=== PATIENT | male | born 1955 | race Caucasian/White ===

== ENCOUNTER 2016-12-29 01:44 | Inpatient (IN) | payer OTHER ==
[~2016-12-29] VITALS: Ht 193 cm; Wt 96.2 kg
--- NOTE | 2016-12-29 01:55 | NUR ---
TO BED 1 AMBULATORY C/O R FLANK PAIN WITH N/V X4 DAYS. PT AAOX4 NO ACUTE DISTRESS NOTED, RESP EVEN AND UNLABORED. ER MD AT BEDSIDE TO EVAL PT WITH ORDERS RECEIVED. WILL CARRY OUT ORDERS. URINE SAMPLE COLLECTED AND SENT TO LAB.
[2016-12-29] MEDS ORDERED: MORPHINE SULFATE INJ 2 MG/ML DISP.SYRIN IV ONE (02:00)
[2016-12-29] MEDS ORDERED: ONDANSETRON HCL/PF 4 MG/2 ML VIAL IVP ONE (02:00)
[2016-12-29] MEDS ORDERED: IV NS 0.9% 1,000 ML BAG IV ONE (02:00)
[2016-12-29] MEDS ORDERED: IV NS 0.9% 1,000 ML ONE ×2 (02:03→06:01)
[2016-12-29] MEDS ORDERED: MORPHINE SULFATE INJ 4 MG/ML DISP.SYRIN ONE (02:03)
[2016-12-29] MEDS ORDERED: ONDANSETRON HCL/PF 4 MG/2 ML VIAL ONE ×2 (02:03→03:27)
[2016-12-29] MEDS ORDERED: IV SET PRIMARY 1 EA INFUS.SET MC ONE (02:04)
--- NOTE | 2016-12-29 02:15 | NUR ---
PT MEDICATED BY RN PER ER MD ORDER.
--- NOTE | 2016-12-29 02:31 | NUR ---
PT BACK FROM RADIOLOGY. PENDING CT ABD/PELVIS RESULT.
[2016-12-29 02:32] LABS: HEMATOCRIT 44 % (39-51); HEMOGLOBIN 15.1 g/dL (13.5-17.5); LYMPHOCYTES # (AUTO) 0.8 /CMM (0.8-4.8); LYMPHOCYTES % (AUTO) 7.5 % (20.0-44.0); MEAN CORPUSCULAR HEMOGLOBIN 33 PG (26.0-33.0); MEAN CORPUSCULAR HGB CONC 35 g/dl (31.0-36.0); MEAN CORPUSCULAR VOLUME 96 fL (80-96); MONOCYTES # (AUTO) 1.1 /CMM (0.1-1.30); MONOCYTES % (AUTO) 9.8 % (2.0-12.0); NEUTROPHILS # (AUTO) 9.1 /CMM (1.8-8.9); NEUTROPHILS % (AUTO) 82.7 % (43.0-81.0); PLATELET COUNT (AUTO) 204 /CMM (150-450); RDW COEFFICIENT OF VARIATION 12.5 (11.5-15.0); RED BLOOD CELL COUNT(AUTO) 4.57 MIL/uL (4.5-6.0)
[2016-12-29 02:35] LABS: APPEARANCE,URINE CLEAR (CLEAR); BILIRUBIN,URINE 1+ (NEGATIVE); BLOOD, URINE 3+ Ery/uL (NEGATIVE); COLOR,URINE YELLOW (YELLOW); KETONES,URINE 2+ (NEGATIVE); LEUKOCYTE ESTERASE ,URINE NEGATIVE (NEGATIVE); NITRITE, URINE NEGATIVE (NEGATIVE); PROTEIN,URINE 1+ mg/dl (NEGATIVE); UGLUCOSE NEGATIVE (NEGATIVE)
[2016-12-29 02:46] LABS: BACTERIA,URINE None seen /HPF (None Seen); SQUAMOUS EPITHELIAL CELL,UR Rare /HPF (None Seen)
[2016-12-29 03:49] LABS: ALBUMIN 3.7 g/dL (3.4-5.0); BILIRUBIN,DIRECT 0.2 mg/dL (0.0-0.2); BILIRUBIN,TOTAL 1.3 mg/dL (0.2-1.0); CALCIUM, SERUM 9.1 mg/dL (8.5-10.1); CREATININE 1.3 mg/dL (0.6-1.3); POTASSIUM 3.5 mmol/L (3.5-5.1); TOTAL PROTEIN, SERUM 7.1 g/dL (6.4-8.2)
[2016-12-29] MEDS ORDERED: METOCLOPRAMIDE HCL 10 MG/2 ML VIAL ONE (03:51)
[2016-12-29] MEDS ORDERED: METOCLOPRAMIDE HCL 10 MG/2 ML VIAL IV ONE (04:00)
[2016-12-29] MEDS ORDERED: ONDANSETRON HCL/PF 4 MG/2 ML VIAL IV ONE (04:00)
--- NOTE | 2016-12-29 04:04 | NUR ---
CALLED DR. DILLON [facility] ; TRANSFERED CALL TO DR. BALBUENA.
--- NOTE | 2016-12-29 04:48 | NUR ---
PT ASSIGNED TO 311-2
--- NOTE | 2016-12-29 04:55 | NUR ---
REPORT GIVEN TO DIEGO MCKINNEY FOR [facility].
[2016-12-29 05:00] VITALS: BP 129/75
--- NOTE | 2016-12-29 05:05 | NUR ---
MS/RN NOTES RECEIVED PT. FROM ER VIA WHEELCHAIR. PT. IS AWAKE, ALERT AND ORIENTED X3. BREATHING EVEN AND UNLABORED ON ROOM AIR. NO SOB, RESPIRATORY DISTRESS OR COMPLAINTS OF PAIN NOTED AT THIS TIME. ORIENTED PT. TO ROOM. PT. WITH LEFT FOREARM 18 GAUGE IV SALINE LOCK PRESENT, PATENT AND INTACT. BED IN LOWEST POSITION, CALL LIGHT WITHIN REACH, WAITING FOR ADMITTING ORDERS, WILL CONTINUE TO MONITOR.
--- NOTE | 2016-12-29 05:07 | NUR ---
PT TRANSFER TO [facility] VIA W/C
[2016-12-29] MEDS ORDERED: IV NS 0.9% 1,000 ML IV PRN (05:50)
[2016-12-29] MEDS ORDERED: TAMSULOSIN 0.4 MG CAP.SR.24H PO SCH (06:00)
[2016-12-29] MEDS ORDERED: ONDANSETRON HCL/PF 4 MG/2 ML VIAL IVP PRN (06:00)
[2016-12-29] MEDS ORDERED: MAGNESIUM HYDROXIDE 30 ML UDC PO PRN (06:00)
[2016-12-29] MEDS ORDERED: LEVOFLOXACIN (500MG) 500 MG TABLET PO SCH (06:00)
[2016-12-29] MEDS ORDERED: Z GUARD REMEDY 2 OZ OINT TP PRN (06:00)
[2016-12-29] MEDS ORDERED: ZOLPIDEM TARTRATE 5 MG TABLET PO PRN (06:00)
[2016-12-29] MEDS ORDERED: KETOROLAC TROMETHAMINE INJ 30 MG/ML VIAL IV PRN (06:00)
[2016-12-29] MEDS ORDERED: ACETAMINOPHEN 325 MG TABLET PO PRN (06:00)
[2016-12-29] MEDS ORDERED: IV SET PRIMARY PUMP SET 1 EA INFUS.SET MC ONE (06:01)
--- NOTE | 2016-12-29 06:26 | NUR ---
MS/RN NOTES NOTIFIED DR. BAKER PT. REFUSING PO MEDS DUE TO NAUSEA AND VOMITING. PER DR. BAKER NEW ORDER: CHANGE LEVAQUIN 500MG TO IV. ALSO NOTIFIED DR. BAKER PT. REQUESTING REGLAN FOR NAUSEA STATING ZOFRAN MAKES HIS NAUSEA WORSE. PER DR. BAKER NEW ORDER: REGLAN 10 MG IV Q6 HR PRN NAUSEA/VOMITING. WILL CARRY OUT ORDERS WILL CONTINUE TO MONITOR.
[2016-12-29] MEDS ORDERED: METOCLOPRAMIDE HCL 10 MG/2 ML VIAL IV PRN (06:30)
--- NOTE | 2016-12-29 07:00 | NUR ---
MS/RN NOTES PT. LYING IN BED RESTING. BREATHING EVEN AND UNLABORED ON ROOM AIR. NO SOB, RESPIRATORY DISTRESS OR COMPLAINTS OF PAIN NOTED AT THIS TIME. PT. WITH LEFT FOREARM 18 GAUGE PERIPHERAL IV PRESENT, PATENT AND INTACT ADMINISTERING TO PT. NS @ 75ML/HR. BED IN LOWEST POSITION, CALL LIGHT WITHIN REACH, WAITING FOR ADMITTING ORDERS, WILL ENDORSE TO DAYSHIFT NURSE FOR CONTINUITY OF CARE.
--- NOTE | 2016-12-29 07:24 | NUR ---
RN OPENING NOTES PT. IS IN BED AWAKE, A&OX4. NO SOB, UNLABORED BREATHING ON ROOM AIR. NO S/S OF ACUTE DISTRESS. IV FLUIDS RUNNING AT 75 ML/HR ON LEFT FOREARM IV SITE. BED IN LOW POSITION, 2 SIDE RAILS UP, AND INSTRUCTED PT. TO USE CALL LIGHT FOR ASSISTANCE. WILL CONTINUE TO ASSESS AND MONITOR.
[2016-12-29] MEDS ORDERED: PANTOPRAZOLE 40 MG TABLET.DR PO SCH (07:30)
[2016-12-29 08:00] VITALS: BP 133/73
[2016-12-29] MEDS ORDERED: SECONDARY IV SET 1 EA INFUS.SET MC ONE (08:52)
[2016-12-29] MEDS ORDERED: LEVOFLOXACIN 500 MG /D5W 100ML 500 MG in PREMIX 1 EA IV SCH (09:00)
--- NOTE | 2016-12-29 14:23 | NUR ---
RN NOTES PT. WAS DISCHARGED BY DR. BJ LUNA. CONTACTED ERVIN SEARS NP ABOUT NEW DISCHARGE ORDERS. ERVIN SEARS NP AGREES TO PROCEED WITH DISCHARGE PLAN.
--- NOTE | 2016-12-29 15:45 | NUR ---
RN NOTES PT. IS MEDICALLY STABLE AND PROVIDED DISCHARGE INSTRUCTIONS WITH A PRESCRIPTION FOR NEW MEDICATIONS. PT. VERBALIZED UNDERSTANDING, AND SIGNED DISCHARGE PACKET. BELONGINGS LIST WAS CHECKED AND SIGNED. ID BAND AND IV WAS REMOVED. ALL QUESTIONS WERE ANSWERED.
--- NOTE | 2016-12-29 16:04 | NUR ---
QUALITY MANAGEMENT NURSE PT. IS GOING HOME PER DISCHARGE ORDER BY LUIS E. PT. WALKED TO HOSPITAL MAIN LOBBY IN MEDICALLY STABLE CONDITION WITH ANOTHER NURSE.
== END 2016-12-29 16:10 | disposition home or self-care (01) | DRG 694 ==
LOC: ER 01:47 → MED 05:07
PROVIDERS: ADMIT Nurse Practitioner Acute Care; ATTEND Nurse Practitioner Acute Care
DX: N20.2 Calculus of kidney with calculus of ureter (principal); Z87.442 Personal history of urinary calculi; L30.9 Dermatitis, unspecified; Z88.0 Allergy status to penicillin; Z88.2 Allergy status to sulfonamides
CPT/HCPCS: 36415; 72128-TC; 80048-TC; 80076-TC; 81000-TC; 83690-TC; 85025-TC; 87081-TC; 87086-TC; A4216; A4606; J1885; J1956; J2270; J2405; J2765; J7030; Z7610

== ENCOUNTER 2017-01-31 14:05 | Outpatient (CLI) | payer OTHER | END 2017-01-31 23:59 | disposition home or self-care (01) | LOC: RT 14:05 | PROVIDERS: ATTEND Urology | DX: Z01.818 Encounter for other preprocedural examination (principal); N20.0 Calculus of kidney ==

== ENCOUNTER 2024-11-11 14:38 | Emergency (ER) | payer MEDICARE, OTHER ==
[~2024-11-11] VITALS: Ht 193 cm; Wt 90.7 kg
[2024-11-11 15:21] LABS: MEAN CORPUSCULAR HGB CONC 35 g/dl (31.0-36.0); MONOCYTES # (AUTO) 1.4 K/uL (0.1-1.30)
[2024-11-11] MEDS ORDERED: MORPHINE SULFATE INJ 2 MG/ML DISP.SYRIN ONE (15:23)
[2024-11-11 15:24] LABS: BASOPHILS % (AUTO) 0.2 % (0.0-2.0); EOSINOPHILS % (AUTO) 0.3 % (0.0-6.0); HEMATOCRIT 47 % (39-51); HEMOGLOBIN 16.4 g/dL (13.5-17.5); LYMPHOCYTES # (AUTO) 0.9 K/uL (0.8-4.8); LYMPHOCYTES % (AUTO) 9.8 % (20.0-44.0); MEAN CORPUSCULAR HEMOGLOBIN 33 PG (26.0-33.0); MEAN CORPUSCULAR VOLUME 97 fL (80-96); NEUTROPHILS # (AUTO) 7.2 K/uL (1.8-8.9); NEUTROPHILS % (AUTO) 74.7 % (43.0-81.0); PLATELET COUNT (AUTO) 183 K/uL (150-450); RED CELL DISTRIBUTION WIDTH 13.1 % (11.5-15.0); WHITE BLOOD COUNT (AUTO) 9.6 K/uL (4.3-11.0)
[2024-11-11] MEDS: IV NS 0.9% 1,000 ML BAG IV ONE (15:25)
[2024-11-11] MEDS ORDERED: DILTIAZEM HCL 25 MG IV ONE (15:25)
[2024-11-11] MEDS: MORPHINE SULFATE INJ 2 MG/ML DISP.SYRIN IV ONE (15:27)
[2024-11-11] MEDS ORDERED: FAMOTIDINE/PF INJ 20 MG/2 ML VIAL IV ONE (15:28)
[2024-11-11 15:29] LABS: CARBON DIOXIDE 30 mmol/L (21-32); CHLORIDE 93 mmol/L (98-107); CREATININE 2.3 mg/dL (0.6-1.3); GLUCOSE 115 mg/dL (74-106); POTASSIUM 3.2 mmol/L (3.5-5.1); SODIUM SERUM 130 mmol/L (136-145); UREA NITROGEN, BLOOD 34 mg/dL (7-18)
[2024-11-11] MEDS: DILTIAZEM HCL 25 MG IV IV ONE (15:29)
[2024-11-11 15:34] LABS: ALANINE AMINOTRANSFERASE 28 U/L (12-78); ALBUMIN 3.1 g/dL (3.4-5.0); ALKALINE PHOSPHATASE 77 U/L (46-116); ASPARTATE AMINOTRANSFERASE 18 U/L (15-37); BILIRUBIN,DIRECT 0.5 mg/dL (0.0-0.2); BILIRUBIN,TOTAL 1.8 mg/dL (0.2-1.0); LIPASE 35 U/L (16-77); TOTAL PROTEIN, SERUM 7.4 g/dL (6.4-8.2)
[2024-11-11] MEDS: FAMOTIDINE/PF INJ 20 MG/2 ML VIAL IV ONE (15:38)
[2024-11-11] MEDS: AMIODARONE 150 MG in IV D5W 100 ML IV ONE (16:15)
[2024-11-11] MEDS: AMIODARONE 450 MG in IV D5W 250 ML IV ONE (16:25)
[2024-11-11] MEDS ORDERED: CEFTRIAXONE 1 G in IV D5W 50 ML IV SCH (17:00)
[2024-11-11] MEDS ORDERED: ACETAMINOPHEN 325 MG TABLET PO PRN (17:00)
[2024-11-11] MEDS ORDERED: MAG HYDROX/AL HYDROX/SIMETH 30 ML UDC PO PRN (17:00)
[2024-11-11] MEDS ORDERED: MAGNESIUM HYDROXIDE 30 ML UDC PO PRN (17:00)
[2024-11-11] MEDS ORDERED: ONDANSETRON HCL/PF 4 MG/2 ML VIAL IVP PRN (17:00)
[2024-11-11] MEDS ORDERED: IV NS 0.9% 1,000 ML IV PRN (17:00)
[2024-11-11] MEDS ORDERED: Z GUARD REMEDY 4 OZ OINT TP PRN (17:00)
[2024-11-11 17:59] LABS: LYMPHOCYTES % (MANUAL) 12 % (16-48); MONOCYTES % (MANUAL) 10 % (0-11.0); NEUTROPHILS % (MANUAL) 78 (42-76); PLATELET ESTIMATE ADEQUATE
[2024-11-11 18:14] VITALS: BP 122/66; TEMP 98; O2SAT 99
[2024-11-12] MEDS ORDERED: TAMSULOSIN 0.4 MG CAP.SR.24H PO SCH (09:00)
[2024-11-13] MEDS ORDERED: METO25TA6 PO (10:16)
[2024-11-13] MEDS ORDERED: Tamsulosin PO (10:16)
[2024-11-13] MEDS ORDERED: CIPR-262 PO (10:16)
[2024-11-13] MEDS ORDERED: TAMS-12 PO (10:16)
== END 2024-11-11 18:14 | disposition left against medical advice (07) ==
LOC: ER 15:02
DX: I48.91 Unspecified atrial fibrillation (principal); I50.9 Heart failure, unspecified; E87.1 Hypo-osmolality and hyponatremia; N13.2 Hydronephrosis with renal and ureteral calculous obstruction; E87.6 Hypokalemia; F12.90 Cannabis use, unspecified, uncomplicated; K57.30 Diverticulosis of large intestine without perforation or abscess without bleeding; N17.9 Acute kidney failure, unspecified; Z87.442 Personal history of urinary calculi; Z88.0 Allergy status to penicillin; Z88.2 Allergy status to sulfonamides; Z79.899 Other long term (current) drug therapy
CPT/HCPCS: 99291; 74176; 96374; 96375; 96361; 93005; 71045; 96376; 85025; 80048; 83690; 80076; 36415; 84484; 83880; J3490; J1308; J7060; J7030; J0282 ×2; J2270; A4223

== ENCOUNTER 2024-11-12 00:24 | Inpatient (IN) | payer MEDICARE ==
[~2024-11-12] VITALS: Ht 193 cm; Wt 95.3 kg
[2024-11-12] MEDS ORDERED: METOPROLOL SUCCINATE 25 MG TAB.SR.24H ONE (00:57)
[2024-11-12] MEDS ORDERED: METOPROLOL TARTRATE INJ 5 MG/5 ML AMPUL ONE ×2 (00:57→03:47)
[2024-11-12 01:04] LABS: BASOPHILS % (AUTO) 0.2 % (0.0-2.0); EOSINOPHILS # (AUTO) 0.1 K/uL (0.0-0.7); EOSINOPHILS % (AUTO) 0.5 % (0.0-6.0); HEMATOCRIT 44 % (39-51); HEMOGLOBIN 15.2 g/dL (13.5-17.5); LYMPHOCYTES # (AUTO) 0.9 K/uL (0.8-4.8); LYMPHOCYTES % (AUTO) 8.9 % (20.0-44.0); MEAN CORPUSCULAR HEMOGLOBIN 33 PG (26.0-33.0); MEAN CORPUSCULAR HGB CONC 35 g/dl (31.0-36.0); MEAN CORPUSCULAR VOLUME 96 fL (80-96); MONOCYTES # (AUTO) 1.7 K/uL (0.1-1.30); MONOCYTES % (AUTO) 16.5 % (2.0-12.0); NEUTROPHILS # (AUTO) 7.7 K/uL (1.8-8.9); NEUTROPHILS % (AUTO) 73.9 % (43.0-81.0); PLATELET COUNT (AUTO) 178 K/uL (150-450); RED BLOOD CELL COUNT(AUTO) 4.57 MIL/uL (4.5-6.0); RED CELL DISTRIBUTION WIDTH 13.2 % (11.5-15.0); WHITE BLOOD COUNT (AUTO) 10.5 K/uL (4.3-11.0)
[2024-11-12 01:10] LABS: CALCIUM, SERUM 8.6 mg/dL (8.5-10.1); CREATININE 2.1 mg/dL (0.6-1.3); POTASSIUM 3.5 mmol/L (3.5-5.1)
[2024-11-12 01:23] LABS: ALBUMIN 2.9 g/dL (3.4-5.0); BILIRUBIN,DIRECT 0.4 mg/dL (0.0-0.2); BILIRUBIN,TOTAL 1.2 mg/dL (0.2-1.0); TOTAL PROTEIN, SERUM 6.7 g/dL (6.4-8.2)
[2024-11-12] MEDS ORDERED: ASPIRIN 325 MG TABLET ONE (01:30)
[2024-11-12] MEDS: ASPIRIN 325 MG TABLET PO ONE (01:32)
[2024-11-12] MEDS: METOPROLOL TARTRATE INJ 5 MG/5 ML AMPUL IV ONE ×2 (01:32→03:30)
[2024-11-12] MEDS: METOPROLOL TARTRATE 25 MG TABLET PO ONE (01:33)
[2024-11-12 01:58] LABS: LYMPHOCYTES % (MANUAL) 14 % (16-48); MONOCYTES % (MANUAL) 7 % (0-11.0); NEUTROPHILS % (MANUAL) 79 (42-76)
[2024-11-12 01:59] LABS: ANISOCYTOSIS 1+; PLATELET ESTIMATE ADEQUATE
[2024-11-12] MEDS ORDERED: ONDANSETRON HCL/PF 4 MG/2 ML VIAL IVP PRN (04:30)
[2024-11-12] MEDS ORDERED: ZOLPIDEM TARTRATE 5 MG TABLET PO PRN (04:30)
[2024-11-12] MEDS ORDERED: ACETAMINOPHEN 325 MG TABLET PO PRN (04:30)
[2024-11-12] MEDS ORDERED: Z GUARD REMEDY 4 OZ OINT TP PRN (04:30)
[2024-11-12] MEDS ORDERED: MAGNESIUM HYDROXIDE 30 ML UDC PO PRN (04:30)
[2024-11-12 08:40] VITALS: BP 114/82; TEMP 97.7
[2024-11-12] MEDS: PANTOPRAZOLE 40 MG TABLET.DR PO SCH (09:02)
[2024-11-12] MEDS: METOPROLOL TARTRATE 25 MG TABLET PO SCH (09:03)
[2024-11-12] MEDS: HEPARIN SODIUM, PORCINE 5000 UNITS/1 ML VIAL SQ SCH (09:04)
[2024-11-12] MEDS: IV NS 0.9% 1,000 ML IV ONE (09:30)
[2024-11-12 11:59] LABS: CHOLESTEROL 90 mg/dL (<200); HDL CHOLESTEROL 26 mg/dL (40-60); LDL 57 mg/dL (0-99); TRIGLYCERIDES 80 mg/dL (30-150)
[2024-11-12 13:55] LABS: CREATININE, URINE 166.1 MG/DL (30.0-125.0); URINE TOTAL PROTEIN 12.7 mg/dL (0-11.9)
[2024-11-12 13:57] LABS: APPEARANCE,URINE CLEAR (CLEAR); BILIRUBIN,URINE NEGATIVE (NEGATIVE); BLOOD, URINE 2+ Ery/uL (NEGATIVE); COLOR,URINE YELLOW (YELLOW); KETONES,URINE TRACE mg/dL (NEGATIVE); LEUKOCYTE ESTERASE ,URINE 1+ (NEGATIVE); NITRITE, URINE NEGATIVE (NEGATIVE); PH,URINE 5.5 (5.0-8.0); PROTEIN,URINE NEGATIVE (NEGATIVE); UGLUCOSE NEGATIVE (NEGATIVE)
[2024-11-12] MEDS: MAG HYDROX/AL HYDROX/SIMETH 30 ML UDC PO PRN (14:17)
[2024-11-12 14:54] LABS: ADD URINE CULTURE YES; BACTERIA,URINE Few /HPF (None Seen); SQUAMOUS EPITHELIAL CELL,UR None Seen /HPF (None Seen)
[2024-11-12 14:55] LABS: MUCUS,URINE Few /LPF (None Seen); URIC ACID CRYSTALS,URINE Moderate /HPF (None Seen)
[2024-11-12] MEDS ORDERED: BACLOFEN (10 MG) 10 MG TABLET PO PRN (15:30)
[2024-11-12 15:44] LABS: EOSINOPHIL,URINE None Seen
[2024-11-12] MEDS: OXYBUTYNIN CHLORIDE 5 MG TABLET PO SCH (17:08)
[2024-11-12 20:00] VITALS: BP 105/69; TEMP 99.5; O2SAT 98
[2024-11-12] MEDS: TAMSULOSIN 0.4 MG CAP.SR.24H PO SCH (21:51)
[2024-11-13] VITALS: BP 119/74; TEMP 99.3; O2SAT 99
[2024-11-13 04:00] VITALS: BP 111/84; TEMP 98.2; O2SAT 98
[2024-11-13 04:13] LABS: BASOPHILS % (AUTO) 0.3 % (0.0-2.0); EOSINOPHILS % (AUTO) 0.2 % (0.0-6.0); HEMATOCRIT 41 % (39-51); HEMOGLOBIN 14.1 g/dL (13.5-17.5); LYMPHOCYTES # (AUTO) 1.1 K/uL (0.8-4.8); MEAN CORPUSCULAR HEMOGLOBIN 33 PG (26.0-33.0); MEAN CORPUSCULAR HGB CONC 34 g/dl (31.0-36.0); MEAN CORPUSCULAR VOLUME 97 fL (80-96); MONOCYTES % (AUTO) 13.3 % (2.0-12.0); NEUTROPHILS # (AUTO) 5.6 K/uL (1.8-8.9); NEUTROPHILS % (AUTO) 72.2 % (43.0-81.0); PLATELET COUNT (AUTO) 153 K/uL (150-450); RED BLOOD CELL COUNT(AUTO) 4.27 MIL/uL (4.5-6.0); RED CELL DISTRIBUTION WIDTH 13.4 % (11.5-15.0); WHITE BLOOD COUNT (AUTO) 7.7 K/uL (4.3-11.0)
[2024-11-13 04:26] LABS: ALBUMIN 2.5 g/dL (3.4-5.0); BILIRUBIN,TOTAL 0.9 mg/dL (0.2-1.0); CALCIUM, SERUM 8.2 mg/dL (8.5-10.1); CREATININE 1.9 mg/dL (0.6-1.3); MAGNESIUM 2.3 mg/dL (1.8-2.4); PHOSPHORUS 2.7 mg/dL (2.5-4.9); POTASSIUM 3.6 mmol/L (3.5-5.1)
[2024-11-13 04:36] LABS: THYROID STIMULATING HORMONE 0.67 uIU/mL (0.358-3.74)
[2024-11-13 08:00] VITALS: BP 131/65; TEMP 99; O2SAT 98
[2024-11-13] MEDS: BACLOFEN (10 MG) 10 MG TABLET PO PRN (08:17)
[2024-11-13 08:18] VITALS: BP 135/81
[2024-11-13] MEDS ORDERED: CIPROFLOXACIN IV RTU 400 MG in PREMIX 1 EA IV SCH (10:00)
[2024-11-13] MEDS ORDERED: TAMS-12 PO (10:16)
[2024-11-13] MEDS ORDERED: Tamsulosin PO (10:16)
[2024-11-13] MEDS ORDERED: METO25TA6 PO (10:16)
[2024-11-13] MEDS ORDERED: CIPR-262 PO (10:16)
[2024-11-13] MEDS ORDERED: IV NS 0.9% 1,000 ML IV ONE (10:30)
[2024-11-14 09:12] LABS: PTH, INTACT 32 pg/mL (15-65)
[2024-11-14 11:07] LABS: *SPE A/G RATIO 0.9 (0.7-1.7); *SPE ALBUMIN 2.5 g/dL (2.9-4.4); *SPE ALPHA-1-GLOBULIN 0.3 g/dL (0.0-0.4); *SPE ALPHA-2-GLOBULIN 0.9 g/dL (0.4-1.0); *SPE BETA GLOBULIN 0.9 g/dL (0.7-1.3); *SPE GLOBULIN, TOTAL 2.7 g/dL (2.2-3.9); *SPE M-SPIKE Not Observed g/dL (Not Observed); *SPE PROTEIN TOTAL 5.2 g/dL (6.0-8.5); *SPEGAMMA GLOBULIN 0.6 g/dL (0.4-1.8)
== END 2024-11-13 14:06 | disposition left against medical advice (07) | DRG 308 ==
LOC: ER 00:26 → TELE IN 06:45 → TELE1 08:12 → TELE-TD 08:32 → TELE1 13:33
PROVIDERS: ADMIT Student in an Organized Health Care Education/Training Program; ATTEND Nurse Practitioner Acute Care
DX: I48.91 Unspecified atrial fibrillation (principal); N17.0 Acute kidney failure with tubular necrosis; E87.1 Hypo-osmolality and hyponatremia; N13.6 Pyonephrosis; I48.92 Unspecified atrial flutter; R07.89 Other chest pain; Z87.891 Personal history of nicotine dependence; K57.30 Diverticulosis of large intestine without perforation or abscess without bleeding; M89.8X9 Other specified disorders of bone, unspecified site; Z53.29 Procedure and treatment not carried out because of patient's decision for other reasons; R79.89 Other specified abnormal findings of blood chemistry; I12.9 Hypertensive chronic kidney disease with stage 1 through stage 4 chronic kidney disease, or unspecified chronic kidney disease; N18.9 Chronic kidney disease, unspecified; E86.0 Dehydration; E88.09 Other disorders of plasma-protein metabolism, not elsewhere classified; N40.0 Benign prostatic hyperplasia without lower urinary tract symptoms; Z87.442 Personal history of urinary calculi; Z88.0 Allergy status to penicillin; Z88.2 Allergy status to sulfonamides; L30.9 Dermatitis, unspecified; M62.838 Other muscle spasm
CPT/HCPCS: 36415; 71045-TC; 76770-TC; 80048-TC; 80053-TC; 80061-TC; 80076-TC; 81001; 82550-TC; 82570-TC; 83735-TC; 83880; 83935-TC; 83970; 84100-TC; 84155; 84165; 84300-TC; 84443-TC; 84484-TC; 85025-TC; 87086-TC; 93307-TC; A4216; A4223; G0378; J0744; J1644; J3490; J7030